=== PATIENT | female | born 1970 | race Caucasian/White ===

== ENCOUNTER 2018-02-27 18:11 | Inpatient (IN) | payer OTHER ==
[~2018-02-27] VITALS: Ht 160 cm; Wt 96.6 kg
[2018-03-04] MEDS ORDERED: CODE1TAB37 PO (14:21)
== END 2018-03-04 15:45 | DRG 743 ==
LOC: O/R 03-01 05:55 → OB/GYN 03-01 07:00
PROVIDERS: Specialist
PROC: 0UT10ZZ Resection of Left Ovary, Open Approach (ICD-10-PCS; 2018-03-01)
PROC: 0UT90ZZ Resection of Uterus, Open Approach (ICD-10-PCS; principal; 2018-03-01 07:00)
DX: D25.1 Intramural leiomyoma of uterus (principal); N72 Inflammatory disease of cervix uteri